=== PATIENT | female | born 1995 | race Caucasian/White ===

== ENCOUNTER 2020-11-20 18:58 | Inpatient (IN) | payer OTHER, SELFPAY ==
[2020-11-20 19:06] VITALS: BMI 25.1
[2020-11-20] MEDS: Lactated Ringers 1,000 ML 50 ML IV (20:00)
[2020-11-20] MEDS: 0.9% Normal Saline Single 100 ML IV.SOLN. INTRA-UTER (20:10)
[2020-11-20 20:15] LABS: Absolute Lymphocyte Count 3.08 X10^3/uL (0.83-4.51); Absolute Neutrophil Count 6.9 X10^3/uL (2.0-7.7); Basophil# 0.03 X10^3/uL; Basophil% 0.3 % (0-1); Eosinophil# 0.14 X10^3/uL; Eosinophils% 1.3 % (0-5); Hematocrit 33.5 % (37-47); Hemoglobin 10.7 g/dL (12.0-15.0); Lymphocyte # 3.08 X10^3/ul (0.83-4.51); Lymphocyte % 27.8 % (19-41); Mean Corp Hgb Conc 31.9 g/dL (32-36); Mean Corpuscular Volume 90.8 fL (81-99); Mean Platelet Vol. 11.4 fl (6.2-12.0); Monocyte# 0.88 X10^3/uL; NRBC Flagged by Analyzer 0 % (0-5); Neutrophil # 6.88 X10^3/uL (2.7-7.7); Neutrophil % 62.1 % (47-70); Platelet Count 215 K/mm3 (150-450); RBC Distribution Width CV 13.1 % (11.6-14.6); RBC Distribution Width SD 42.6 fl (35.1-43.9); Red Blood Count 3.69 M/mm3 (4.2-5.4); White Blood Count 11.1 K/mm3 (4.4-11.0)
[2020-11-20 20:17] VITALS: BP 115/71; PULSE 87; TEMP 36.9
--- NOTE | 2020-11-20 20:23 | HP.PCM.OB_ITS ---
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 for induction of labor due to mild oligohydramnios. PFSH Home Medications Lactobacillus acidophilus [Florajen Acidophilus] 20,000 mmu cells PO DAILY 11/20/20 [History Last Taken 11/19/20] [id number] oil [ Gummy] 1 tab PO DAILY 11/20/20 [History Last Taken 11/19/20] pyridoxine (vitamin B6) [Vitamin B-6] 50 mg PO DAILY 11/20/20 [History Last Taken 11/19/20] Allergy/AdvReac Type Severity Reaction Status Date / Time Penicillins Allergy Mild Hives Verified 11/20/20 20:28 History Addt'l History: Rubella immune HIV negative RPR negative GBS negative HBsAG negative HepC negative A positive GC/CT negative NST FHR Rate Baby A Baseline: 135 Variability:: Moderate Accelerations:: 15 x 15 Decelerations:: None FHR Category:: Category I Uterine Activity:: Irregular ROS Constitutional Constitutional: Reports systems reviewed and no addt'l complaints, except as documented; Denies headache(s) Eyes Eyes: Denies acute decrease in peripheral vision, blurry vision or change in vision ENT HEENT: Reports systems reviewed and no addt'l complaints, except as documented Cardiovascular Cardiovascular: Denies chest pain or dizziness Respiratory/Chest Respiratory/Chest: Denies cough, dyspnea, dyspnea on exertion, shortness of breath at rest or shortness of breath with exertion Gastrointestinal Gastrointestinal: Denies abdominal pain, diarrhea, nausea or vomiting Genitourinary Genitourinary: Denies abdominal discomfort or movement Musculoskeletal Musculoskeletal: Denies limited range of motion Integumentary Integumentary: Reports systems reviewed and no addt'l complaints, except as documented Neurologic Neurologic: Reports systems reviewed and no addt'l complaints, except as documented Psychiatric Psychiatric: Reports systems reviewed and no addt'l complaints, except as documented Endocrine Endocrinology: Reports systems reviewed and no addt'l complaints, except as documented Hematologic/Lymphatic Hematologic/Lymphatic: Reports systems reviewed and no addt'l complaints, except as documented Allergic/Immunologic Allergic/Immunologic: Reports systems reviewed and no addt'l complaints, except as documented Vital Signs Vital Signs Vital Signs: 11/20/20 20:17 Pulse Rate 87 Blood Pressure 115/71 BP Systolic 115 BP Diastolic 71 Physical Exam Const alert, oriented x3 and no apparent distress General Appearance: cooperative and comfortable Orientation / Consciousness: awake, oriented to person, oriented to place and oriented to time Exam Limitations: no limitations HEENT normocephalic Head and Scalp: normocephalic and atraumatic Face and Sinus: normal facial exam Eyes General Eye: normal appearance of both eyes Neck full ROM Chest Chest: symmetrical chest wall rise Resp normal respiratory effort and normal air movement Auscultation: clear to auscultation bilaterally Cardio regular rate, regular rhythm, S1 normal heart sound, S2 normal heart sound, no murmurs, no rub, no gallops and no clicks GI normal to inspection, nondistended, normoactive bowel sounds and non-tender appearance of the vagina normal Bladder / Kidney Exam: no CVA tenderness Manual OB Exam: presentation cephalic, dilated 2, effaced 60 and station - 2 Amniotic Fluid: no amniotic fluid noted Back/Spine normal ROM Extremity normal to inspection and full ROM Skin no rashes or lesions noted Neuro oriented x3, CN's II-XII intact bilaterally and moves all extremities Sensorium / Orientation: awake, alert and oriented to person Motor Exam: clonus absent Deep Tendon Reflexes: Rt Patellar (L4): 2+ and Lt Patellar (L4): 2+ Assessment & Plan Assessment/Plan (1) Polyhydramnios affecting : Status: Acute Code(s): O40.9XX0 - Polyhydramnios, unspecified trimester, not applicable or unspecified (2) History of spontaneous : Status: Acute Code(s): Z87.59 - Personal history of other complications of , childbirth and the puerperium (3) Encounter for induction of labor: Status: Acute Code(s): Z34.90 - Encounter for supervision of normal , unspecified, unspecified trimester Plan: 1) Admit to labor and delivery 2) IV and routine labs 3) Continuous EFM 4) Fraga with PO cytotec for cervical ripening 5) Pitocin per policy once cervical ripened and 4hr after last cytotec dose if needed 6) Planning unmedicated , has suha Sousa present 7) COVID test 8)GBS negative 9) notified and collaborative physician.
[2020-11-20] MEDS: miSOPROStol 25 MCG TABLET PO (21:00)
[2020-11-20 21:11] VITALS: BP 112/64; PULSE 84; TEMP 36.7; O2SAT 100
[2020-11-20 23:45] VITALS: BP 117/67; PULSE 86; TEMP 36.8; O2SAT 99
[2020-11-20 23:51] VITALS: PULSE 81; O2SAT 99
[2020-11-21] VITALS (66 sets, daily range): BP systolic 89–129; BP diastolic 50–73; PULSE 78–153; RESP 16; TEMP 36.2–37.2; O2SAT 82–100
--- NOTE | 2020-11-21 00:38 | NURSING ---
Paternal aunt-missing ears/no tubes. FOB states not a genetic finding.
[2020-11-21] MEDS: Lactated Ringers 500 ML 999 ML IV (04:31)
[2020-11-21] MEDS: 0.9% Saline Lock 10 ML Syringe IV (04:31)
[2020-11-21] MEDS: Oxytocin 30 units/NS 500 ml 30 UNITS/500 ML IV.SOLN IV (06:13)
[2020-11-21] MEDS: fentaNYL-bupivacaine (epidural) 100 ML BAG EPIDURAL (06:14)
[2020-11-21] MEDS: Lactated Ringers 1,000 ML 200 ML IV (07:04)
[2020-11-21] MEDS: Ondansetron 4 MG/2 ML Vial IV (07:32)
[2020-11-21] MEDS: Oxytocin 30 units/NS 500 ml 30 UNITS/500 ML IV.SOLN 334 UNITS IV (10:50)
--- NOTE | 2020-11-21 11:36 | OP.PCM_ITS ---
Problems Associated Problem List Diagnoses (1) Vaginal delivery: (2) Second degree perineal laceration: (3) Laceration of labia minora: Report of Operation (OB) Information Final HA: 11/20/20 Final HA Source: US <20 weeks Gestational age: 40 Weeks and 1 Days Operative Information Date of Procedure: 11/21/20 Pre-Operative Diagnosis: Induction of labor for polyhydramnios Post-Operative Diagnosis: Type of Anesthesia: Epidural Findings Description of Procedure: Progressed to completed with strong urge to push. of viable male over second degree perineal laceration and left labial laceration. APGARS 10,10. head delivered with body forthcoming. Mouth and nares suctioned for secretions. Infant placed on maternal abdomen, strong cry. Pitocin started for active 3rd stage management. Placenta delivered with expr ession, inctact, 3 vessel cord. Perineum inspected and revealed 2nd degree perineal laceration and left labial laceration, repaired under epidural analgesia and 3.0vicryl rapide. Vaginal sweep completed by me. Fundus firm. hemostasis achieved and EBL 250ml. initiated. Mom and baby stable. Family bonding well. notified of delivery. Surgery/ Procedure Performed: Spontaneous Vaginal Delivery Presentation: Positive for Vertex and DAVIDA Amniotic Membrane Rupture Type: Spontaneous Amniotic Fluid Description: Clear and - (terminal meconium) Placental Delivery Description: Spontaneous Placenta Disposition: [facility] Cord Vessel Description: 3 Vessels Cord Entanglement: Around neck x 1, loose Nuchal Cord Compression: Without compression Infant Gender: Male (1 minute): 10 (5 minute): 10 Delayed Cord Clamping: Yes Esitmated Blood Loss (mL): 250 ml Post Vaginal Delivery Episiotomy Description: None Laceration: Perineal Extension/lac and 2nd degree Complications Complications: None Baby B Information Amniotic Membrane Rupture Type: Spontaneous Operative Information Cord Entanglement: Around neck x 1, loose Cord Vessel Description: 3 Vessels (1 minute): 10 (5 minute): 10
[2020-11-21] MEDS: Ibuprofen 600 MG Tablet PO ×2 (12:46→22:03)
[2020-11-22 03:47] VITALS: BP 105/56; PULSE 78; RESP 18; TEMP 36
[2020-11-22] MEDS: Acetaminophen 500 MG Tablet 1000 MG PO (03:56)
[2020-11-22 05:20] LABS: Hematocrit 29.9 % (37-47); Hemoglobin 9.6 g/dL (12.0-15.0); Mean Corp Hgb Conc 32.1 g/dL (32-36); Mean Corpuscular Hgb 29.3 pg (27.0-32.0); Mean Corpuscular Volume 91.2 fL (81-99); Mean Platelet Vol. 11.5 fl (6.2-12.0); Platelet Count 172 K/mm3 (150-450); RBC Distribution Width CV 13.2 % (11.6-14.6); RBC Distribution Width SD 43.3 fl (35.1-43.9); Red Blood Count 3.28 M/mm3 (4.2-5.4); White Blood Count 15.1 K/mm3 (4.4-11.0)
[2020-11-22 08:04] VITALS: BP 110/58; PULSE 77; RESP 16; TEMP 36.1
--- NOTE | 2020-11-22 08:39 | PCM.PN.OB ---
Subjective Subjective: Patient seen at bedside. Up ambulating in room. Voiding without difficulty. Breast feeding going well with minimal support. Taking Motrin PO for soreness. Requesting discharge home later today. Objective Data Objective Data Vital Signs: Vital Signs Temp Pulse Resp BP Pulse Ox 97.0 F L 77 16 110/58 L 100 11/22/20 08:04 11/22/20 08:04 11/22/20 08:04 11/22/20 08:04 11/21/20 07:17 Oxygen Delivery Method Room Air Weight: 169 lb 15.622 oz Body Mass Index (BMI) 25.1 Intake & Output: Intake and Output for Last 24 Hours 11/20/20 11/21/20 11/22/20 23:59 23:59 23:59 Intake Total 2603.20 / 2603.20 Output Total 1500 / 1500 Balance 1103.20 / 1103.20 Lab / Micro Data Result Diagrams: 11/22/20 05:15 Labs: Laboratory Results - last 24 hr 11/22/20 05:15 WBC 15.1 H RBC 3.28 L Hgb 9.6 L Hct 29.9 L MCV 91.2 MCH 29.3 MCHC 32.1 RDW Std Deviation 43.3 RDW Coeff of Lior 13.2 Plt Count 172 MPV 11.5 Micro: Microbiology 11/20/20 19:40 Mucosa - Nose SARS-CoV-2 Antigen (Rapid) - Final Physical Exam Const alert and oriented x3 General Appearance: cooperative and comfortable Orientation / Consciousness: awake Exam Limitations: no limitations HEENT normocephalic Face and Sinus: normal facial exam Eyes General Eye: normal appearance of both eyes Neck full ROM General: normal visual inspection Lymph Lymphatic: no lymphadenopathy noted Chest Chest: symmetrical chest wall rise Resp normal respiratory effort and normal air movement Effort and Inspection: able to speak in complete sentences Cardio regular rate external exam normal OB / External & Speculum: vulvular erythema Manual OB Exam: deferred Extremity normal to inspection Skin no rashes or lesions noted Neuro oriented x3 and CN's II-XII intact bilaterally Psych Appearance: appropriate Attitude: calm Assessment & Plan Assessment/Plan (1) Second degree perineal laceration: Status: Acute Code(s): O70.1 - Second degree perineal laceration during delivery (2) Laceration of labia minora: Status: Acute Code(s): S31.41XA - Laceration without foreign body of vagina and vulva, initial encounter (3) Vaginal delivery: Status: Acute Code(s): O80 - Encounter for full-term uncomplicated delivery Plan: Routine care Pain control support Discharge home today
--- NOTE | 2020-11-22 08:48 | PCM.DC.SUM ---
Providers Date of Admission: 11/20/20 Primary Care Physician: Analisa Primary Care Phys Reason For Visit: VAGINAL DELIVERY Diagnosis Discharge Diagnosis (1) Second degree perineal laceration: Status: Acute Code(s): O70.1 - Second degree perineal laceration during delivery (2) Laceration of labia minora: Status: Acute Code(s): S31.41XA - Laceration without foreign body of vagina and vulva, initial encounter (3) Vaginal delivery: Status: Acute Code(s): O80 - Encounter for full-term uncomplicated delivery Medications at Discharge Home Medications Florajen Acidophilus 20,000 mmu cells PO DAILY 11/20/20 Gummy 1 tab PO DAILY 11/20/20 ABG / Lab / Microbiology Data Result Diagrams: 11/22/20 05:15 Laboratory: Laboratory Results - last 24 hr 11/22/20 05:15 WBC 15.1 H RBC 3.28 L Hgb 9.6 L Hct 29.9 L MCV 91.2 MCH 29.3 MCHC 32.1 RDW Std Deviation 43.3 RDW Coeff of Lior 13.2 Plt Count 172 MPV 11.5 Microbiology: Microbiology 11/20/20 19:40 Mucosa - Nose SARS-CoV-2 Antigen (Rapid) - Final D/C Instructions Discharge Diet: No restrictions Weight Bearing Status: Weight bearing as tolerated Please follow up with your Primary Care Physician in: 2 weeks virtual/6 weeks in office Meaningful Use Info Meaningful Use Diagnoses (Choose all that apply): None applicable Discharge Plan Admission Admit Date/Time: 11/20/20 18:58 Primary Reason for Your Visit: Induction of labor Attending Provider: Gabbi Agustin Primary Care Provider: Care Physician,No Primary Discharge Orders/Prescriptions Prescriptions: Continued Florajen Acidophilus 20 billion cell Capsule 20,000 mmu cells PO DAILY RF: 0 Gummy 400 mcg-35 mg -25 mg-5 mg Tablet,Chewable 1 tab PO DAILY RF: 0 Discontinued Vitamin B-6 50 mg Capsule 50 mg PO DAILY RF: 0 Referrals: Care Physician,No Primary [Primary Care Provider] - Disposition Patient Disposition: Home, self care
[2020-11-22] MEDS: Ibuprofen 600 MG Tablet PO ×2 (08:53→16:44)
[2020-11-22 12:56] VITALS: BP 104/58; PULSE 101; RESP 18; TEMP 36.3
--- NOTE | 2020-11-23 15:24 | PCM.DC ---
Discharge Instructions Outpatient Procedure Reason For Visit: VAGINAL DELIVERY Diet Discharge Diet: No restrictions Activity Discharge Activity: No Restrictions May resume sexual activity in: 6-8 weeks Weight Bearing Status: Weight bearing as tolerated Dressing / Incision Call your doctor if you observe: Fever of 101 or Higher, Inability to urinate, Using more than one pad per hour, Shortness of breath, Chest pain, Calf discomfort and Uncontrolled pain Follow Up Care Please Follow Up With: Maryam Junior CNM When: 2 weeks virtual visit/ 6 weeks in office Test Results: Test results from this visit will be discussed in further detail at your follow-up appointment, if applicable. Discharge Plan Admission Admit Date/Time: 11/20/20 18:58 Primary Reason for Your Visit: vaginal delivery Attending Provider: Gabbi Agustin Primary Care Provider: Care Physician,No Primary Instructions Forms: Information Discharge Orders/Prescriptions Prescriptions: Continued Florajen Acidophilus 20 billion cell Capsule 20,000 mmu cells PO DAILY RF: 0 Gummy 400 mcg-35 mg -25 mg-5 mg Tablet,Chewable 1 tab PO DAILY RF: 0 Discontinued Vitamin B-6 50 mg Capsule 50 mg PO DAILY RF: 0 Referrals: Care Physician,No Primary [Primary Care Provider] - Disposition Patient Disposition: Home, self care
--- NOTE | 2020-11-23 15:28 | PCM.DC ---
Discharge Instructions Outpatient Procedure Reason For Visit: VAGINAL DELIVERY Diet Discharge Diet: No restrictions Activity Discharge Activity: No Restrictions, May Not Drive (2 weeks), May Shower and May Take a Tub Bath (Do not use soaps, salts or bubble bath) May resume sexual activity in: 6-8 weeks Weight Bearing Status: Weight bearing as tolerated Lifting Restrictions: 20 lbs Dressing / Incision Call your doctor if your incision/area has: Continuous Slow Oozing, Increased Pain/ Swelling, Increased Redness, Foul Smelling Discharge and Swelling at the incision site Call your doctor if you observe: Fever of 101 or Higher, Inability to urinate, Using more than one pad per hour, Shortness of breath, Chest pain, Calf discomfort and Uncontrolled pain Remove Dressing in: 5 days Cleanse incision/area with: Soap & Water and Keep Dressing Clean & Dry Follow Up Care Please Follow Up With: Maryam Junior CNM Test Results: Test results from this visit will be discussed in further detail at your follow-up appointment, if applicable. Discharge Plan Admission Admit Date/Time: 11/20/20 18:58 Primary Reason for Your Visit: vaginal delivery Attending Provider: Gabbi Agustin Primary Care Provider: Care Physician,No Primary Instructions Forms: Information Discharge Orders/Prescriptions Prescriptions: Continued Florajen Acidophilus 20 billion cell Capsule 20,000 mmu cells PO DAILY RF: 0 Gummy 400 mcg-35 mg -25 mg-5 mg Tablet,Chewable 1 tab PO DAILY RF: 0 Discontinued Vitamin B-6 50 mg Capsule 50 mg PO DAILY RF: 0 Referrals: Care Physician,No Primary [Primary Care Provider] - Disposition Patient Disposition: Home, self care
== END 2020-11-22 17:05 | disposition home or self-care (01) | DRG 807 ==
PROVIDERS: Admitting Provider Advanced Practice Midwife; Visit Provider Advanced Practice Midwife
DX: O40.3XX0 Polyhydramnios, third trimester, not applicable or unspecified (principal); Z37.0 Single live birth; O70.1 Second degree perineal laceration during delivery; O69.81X0 Labor and delivery complicated by cord around neck, without compression, not applicable or unspecified; Z87.59 Personal history of other complications of pregnancy, childbirth and the puerperium; Z3A.40 40 weeks gestation of pregnancy; Z88.0 Allergy status to penicillin
CPT/HCPCS: 59025; 59050; 85025; 85027; 86850; 86900; 86901; 87426; 99218; J7120; A4216; G0378; J2405

== ENCOUNTER → 2021-01-07 12:55 | Outpatient (CLI) | payer OTHER, SELFPAY | PROVIDERS: Referring Provider Advanced Practice Midwife; Visit Provider Advanced Practice Midwife | DX: O92.79 Other disorders of lactation (principal) | CPT/HCPCS: 96158; 96159 ==

== ENCOUNTER → 2021-05-26 16:21 | Outpatient (CLI) | payer OTHER, SELFPAY ==
[2021-05-27 08:35] LABS: Hepatitis B Surface Antibody Non-Reactive
[2021-05-31 06:08] LABS: HEPATITIS B SURFACE AG Negative (Negative); Hepatitis A IgM Antibody Negative (Negative); Hepatitis B Core AB IgM Negative (Negative); QNTFERON TB Mitogen Value > 10.00 IU/mL (.); QNTFERON TB Nil Value 0.05 IU/mL (.); QNTFERON TB1+ Ag Value 0.07 IU/mL (.); QNTFERON TB2+ Ag Value 0.06 IU/mL (.)
[2021-05-31 08:37] LABS: Hep C Antibodies <0.1 s/co ratio (0.0-0.9); Hepatitis A AB, Total Positive (Negative); QNTIFERON TB Positive Criteria Negative (Negative)
== END ==
PROVIDERS: Referring Provider Dermatology Pediatric Dermatology; Visit Provider Dermatology Pediatric Dermatology
DX: L40.0 Psoriasis vulgaris (principal); Z79.899 Other long term (current) drug therapy
CPT/HCPCS: 36415; 80074; 86480; 86706; 86708

== ENCOUNTER 2023-02-01 06:30 | Inpatient (IN) | payer SELFPAY ==
[2023-02-01] VITALS (17 sets, daily range): BP systolic 114–134; BP diastolic 57–73; PULSE 86–123; RESP 16; TEMP 36.4–36.6; O2SAT 98–100; BMI 23.6
[2023-02-01 07:35] LABS: Absolute Lymphocyte Count 2.29 X10^3/uL (0.83-4.51); Absolute Neutrophil Count 6.5 X10^3/uL (2.0-7.7); Basophil# 0.03 X10^3/uL; Basophil% 0.3 % (0-1); Eosinophil# 0.31 X10^3/uL; Eosinophils% 3.1 % (0-5); Hemoglobin 12.6 g/dL (12.0-15.0); Lymphocyte # 2.29 X10^3/ul (0.83-4.51); Lymphocyte % 23.1 % (19-41); Mean Corp Hgb Conc 32.3 g/dL (32-36); Mean Corpuscular Hgb 30.7 pg (27.0-32.0); Mean Corpuscular Volume 94.9 fL (81-99); Mean Platelet Vol. 11.1 fl (6.2-12.0); Monocyte# 0.68 X10^3/uL; Monocyte% 6.8 % (0-10); NRBC Flagged by Analyzer 0 % (0-5); Neutrophil # 6.54 X10^3/uL (2.7-7.7); Neutrophil % 65.9 % (47-70); Platelet Count 145 K/mm3 (150-450); RBC Distribution Width CV 13.2 % (11.6-14.6); Red Blood Count 4.11 M/mm3 (4.2-5.4); White Blood Count 9.9 K/mm3 (4.4-11.0)
[2023-02-01] MEDS: Lactated Ringers 1,000 ML 50 ML IV (07:35)
[2023-02-01] MEDS: Oxytocin 15 Units/NS 250ml 15 UNITS/250 ML IV.SOLN 2 UNITS IV (08:49)
[2023-02-01 08:59] LABS: Syphilis Antibodies Non-reactive
--- NOTE | 2023-02-01 11:36 | PN.OBGYN_ITS ---
Subjective Subjective Coping well in labor, unmedicated. Positional changes and breathing through contractions. providing labor support at bedside. Objective Data Objective Data Vital Signs: Vital Signs Temp Pulse BP Pulse Ox 97.8 F 99 133/71 H 98 02/01/23 11:21 02/01/23 11:21 02/01/23 11:21 02/01/23 10:32 Weight: 160 lb 0.889 oz Body Mass Index (BMI) 23.6 Intake & Output: Intake and Output for Last 24 Hours 01/30/23 01/31/23 02/01/23 23:59 23:59 23:59 Intake Total 1.3 / 1.3 Balance 1.3 / 1.3 Lab / Micro Data 02/01/23 07:15 Labs: Laboratory Results - last 24 hr 02/01/23 07:15: WBC 9.9, RBC 4.11 L, Hgb 12.6, Hct 39.0, MCV 94.9, MCH 30.7, MCHC 32.3, RDW Std Deviation 46.0 H, RDW Coeff of Lior 13.2, Plt Count 145 L, MPV 11.1, Immature Gran % (Auto) 0.800, Neut % (Auto) 65.9, Lymph % (Auto) 23.1, [place] % (Auto) 6.8, Eos % (Auto) 3.1, Baso % (Auto) 0.3, Absolute Neuts (auto) 6.5, Absolute Lymphs (auto) 2.29, Nucleated RBC % 0, Syphilis Total Ab Non- reactive, Blood Type A POSITIVE, Antibody Screen NEGATIVE Physical Exam Manual OB Exam: estimated gestational size appropriate, presentation cephalic, dilated 80, effaced 80, station -1 and other AROM meconium stained fluid NST FHR Rate Baby A Baseline: 125 Variability:: Moderate Accelerations:: 15 x 15 Decelerations:: Variable FHR Category:: Category II Uterine Activity:: Contractions every 2-3 minutes Assessment & Plan (1) Thick meconium stained amniotic fluid: (2) Active labor at term: (3) Post-dates : PLAN: Plan 1) Active labor progressing, continue with active management. 2) Continue with active management, Pitocin at 4 mu's 3) Planning unmedicated 4) collaborative physician and notified of patient status
--- NOTE | 2023-02-01 11:50 | PCM.HP.OB ---
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 Upon arrival, having irregular contractions. No leakage of fluid or vaginal bleeding. course uncomplicated. Maternal Data Information HA Calculator Estimated Delivery Date Method Current WG Current Estimate 01/20/23 Manual 41w 5d Final HA: 01/20/23 PFS PFS Medical History (Updated 02/01/23 @ 12:05 by Gabbi Agustin CNM) Encounter for induction of labor Family history of hearing loss at age younger than 7 years Medical History no medical history Home Medications Lactobacillus acidophilus 20 billion cell capsule (Florajen Acidophilus) 20,000 mmu cells PO DAILY supplement 11/20/20 [History Last Taken 01/31/23] [id number] 400 mcg-om3 35 mg-dha 25 mg-epa 5 mg-fish oil chewable tablet ( Gummy) 1 tab PO DAILY supplement 11/20/20 [History Last Taken 01/31/23] aspirin 81 mg tablet,delayed release 81 mg PO DAILY 02/01/23 [History Last Taken 01/31/23] Allergy/AdvReac Type Severity Reaction Status Date / Time Penicillins Allergy Mild Hives Verified 02/01/23 08:36 Family History Brother Myasthenia gravis Surgical History (Updated 11/20/20 @ 20:43 by Lucina Ruiz) [place] teeth extracted Social History Smoking Status: Never smoker History Elective abortions Hx Para 1 Spontaneous abortions Hx # Term Pregnancies Ectopic pregnancies Hx # Pregnancies Multiple births # of living children NST FHR Rate Baby A Baseline: 125 Variability:: Moderate Accelerations:: 15 x 15 Decelerations:: Variable NST Reactive:: Yes FHR Category:: Category II Uterine Activity:: every 2-4 minutes ROS Constitutional Constitutional: Reports systems reviewed and no addt'l complaints, except as documented; Denies headache(s) Eyes Eyes: Denies acute decrease in peripheral vision, blurry vision or change in vision ENT HEENT: Reports systems reviewed and no addt'l complaints, except as documented Cardiovascular Cardiovascular: Denies chest pain or dizziness Respiratory/Chest Respiratory/Chest: Denies cough, dyspnea, dyspnea on exertion, shortness of breath at rest or shortness of breath with exertion Gastrointestinal Gastrointestinal: Denies abdominal pain, diarrhea, nausea or vomiting Genitourinary Genitourinary: Denies abdominal discomfort Musculoskeletal Musculoskeletal: Denies limited range of motion Integumentary Integumentary: Reports systems reviewed and no addt'l complaints, except as documented Neurologic Neurologic: Reports systems reviewed and no addt'l complaints, except as documented Psychiatric Psychiatric: Reports systems reviewed and no addt'l complaints, except as documented Endocrine Endocrinology: Reports systems reviewed and no addt'l complaints, except as documented Hematologic/Lymphatic Hematologic/Lymphatic: Reports systems reviewed and no addt'l complaints, except as documented Allergic/Immunologic Allergic/Immunologic: Reports systems reviewed and no addt'l complaints, except as documented Vital Signs Vital Signs Vital Signs: 02/01/23 07:24 02/01/23 07:24 02/01/23 07:25 Temperature Temperature Source Pulse Rate 86 99 Blood Pressure 114/61 BP Systolic 114 BP Diastolic 61 Pulse Ox 02/01/23 07:25 02/01/23 07:24 02/01/23 07:24 Temperature 97.7 F L Temperature Source Temporal Pulse Rate Blood Pressure BP Systolic BP Diastolic Pulse Ox 99 02/01/23 07:24 02/01/23 08:44 02/01/23 08:44 Temperature Temperature Source Pulse Rate 89 Blood Pressure 134/73 H BP Systolic 134 BP Diastolic 73 Pulse Ox 99 02/01/23 08:43 02/01/23 10:32 02/01/23 10:32 Temperature Temperature Source Pulse Rate 123 H Blood Pressure 129/60 H BP Systolic 129 BP Diastolic 60 Pulse Ox 100 02/01/23 10:31 02/01/23 10:32 02/01/23 11:21 Temperature Temperature Source Temporal Pulse Rate Blood Pressure BP Systolic BP Diastolic Pulse Ox 98 98 02/01/23 11:21 02/01/23 11:21 02/01/23 11:21 Temperature 97.8 F Temperature Source Pulse Rate 99 Blood Pressure 133/71 H BP Systolic 133 BP Diastolic 71 Pulse Ox Weight Weight: 160 lb 0.889 oz Body Mass Index (BMI) 23.6 Physical Exam Const alert and oriented x3 General Appearance: cooperative Orientation / Consciousness: awake, oriented to person, oriented to place and oriented to time Exam Limitations: no limitations HEENT normocephalic Head and Scalp: normal to inspection, normocephalic and atraumatic Face and Sinus: normal facial exam Eyes General Eye: normal appearance of both eyes Neck full ROM Chest Chest: symmetrical chest wall rise Resp normal respiratory effort and normal air movement Auscultation: clear to auscultation bilaterally Cardio regular rate, regular rhythm, S1 normal heart sound, S2 normal heart sound, no murmurs, no rub, no gallops and no clicks GI normal to inspection, nondistended, normoactive bowel sounds and non-tender appearance of the vagina normal Bladder / Kidney Exam: no CVA tenderness Manual OB Exam: estimated gestational size appropriate, presentation cephalic and dilated 5cm upon arrival Back/Spine normal ROM Extremity normal to inspection and full ROM Skin no rashes or lesions noted Neuro oriented x3, CN's II-XII intact bilaterally and moves all extremities Sensorium / Orientation: awake, alert and oriented to person Motor Exam: clonus absent Deep Tendon Reflexes: Rt Patellar (L4): 2+ and Lt Patellar (L4): 2+ Labs Labs Labs: Blood Type A POSITIVE Antibody Screen NEGATIVE Hct 39.0 % (37-47) Hgb 12.6 g/dL (12.0-15.0) Syphilis Total Ab Non-reactive Hep Bs Antigen Negative (Negative) GBS negative HIV negative RPR negative Hep C negative HBsAG negative Rubella immune A positive GC/CT negative Assessment & Plan (1) Encounter for induction of labor: (2) 41 weeks gestation of : (3) Post-dates : (4) Active labor at term: PLAN: Plan 1) Admit to labor and delivery 2) GBS negative 3) Pitocin per policy 4) Pain management upon request 5) Continous EFM 6) collaborative physician and notified of patient status.
[2023-02-01] MEDS: Lidocaine 1% (20 ml mdv) 20 ML Vial INFILT (13:32)
--- NOTE | 2023-02-01 13:46 | EX.PCM.OBRPT ---
Assessment & Plan (1) Second degree perineal laceration: (2) Thick meconium stained amniotic fluid: (3) Vaginal delivery: Maternal Data Information HA Calculator Estimated Delivery Date Method Current WG Current Estimate 01/20/23 Manual 41w 5d Vaginal Delivery Maternal Presentation Maternal Presentation: Active Labor and Medically Indicated Induction Type of Induction: Pitocin Medical Reason for Induction: Post term Operative Information Date of Procedure: 02/01/23 Pre-Operative Diagnosis: Presented in active labor/labor augmentation Post-Operative Diagnosis: , second degree perineal laceration Surgery / Procedure Performed: Spontaneous Vaginal Delivery Type of Anesthesia: Local with 2% Lidocaine Estimated Blood Loss: 450 ml Time of Delivery: 13:22 Findings Description of Procedure: Progressed to complete with urge to push. Unmedicated. Pediatirician and respiratory called for delivery due to meconium stained fluid. of viable female over second degree perineal laceration. APGARS 8,9 respectively. head delivered with body immediately forthcoming. Placed on maternal abdomen, strong cry. Mouth and nares suctioned for secretions. Pitocin started for active 3rd stage management. Cord doubly clamped and cut by FOB after pulsations ceased, delayed cord clamping. Placenta delivered intact via tierra, 3 vessel cord intact. Perineum inspected and revealed 2nd degree perineal laceration. Repaired with 3.0 Vicryl Rapide and lidocaine. Fundus firm and hemostasis achieved. EBL 450. Sponge and instrument count correct. Vaginal sweep completed by me. Mom and baby stable, planning to breastfeed. Family bonding well. notified of delivery. Presentation: Vertex and ROP Amniotic Membrane Rupture Type: Spontaneous Amniotic Fluid Description: Thick meconium Placental Delivery Description: Spontaneous Placenta Disposition: [facility] Cord Vessel Description: 3 Vessels Cord Entanglement: None Infant A Gender: Female (1 minute): 8 (5 minute): 9 Delayed Cord Clamping: Yes Post Vaginal Delivery Medications Given After Delivery: IV Pitocin Episiotomy Description: None Laceration: Perineal Extension/lac and 2nd degree Complication Complications: None
[2023-02-01] MEDS: Oxytocin 15 Units/NS 250ml 15 UNITS/250 ML IV.SOLN 83 UNITS IV (13:59)
[2023-02-01] MEDS: Ibuprofen 600 MG Tablet PO (15:11)
[2023-02-01] MEDS: 0.9% Saline Lock 10 ML Syringe IV (17:04)
[2023-02-02 00:20] VITALS: BP 106/58; PULSE 78; RESP 16; TEMP 36.4
[2023-02-02 04:19] VITALS: BP 126/58; PULSE 77; RESP 16; TEMP 36.6
[2023-02-02] MEDS: Acetaminophen 500 MG Tablet 1000 MG PO (06:00)
[2023-02-02 07:04] LABS: Hematocrit 32.9 % (37-47); Hemoglobin 10.8 g/dL (12.0-15.0); Mean Corp Hgb Conc 32.8 g/dL (32-36); Mean Corpuscular Volume 94.5 fL (81-99); Platelet Count 146 K/mm3 (150-450); RBC Distribution Width CV 13.3 % (11.6-14.6); RBC Distribution Width SD 46.2 fl (35.1-43.9); Red Blood Count 3.48 M/mm3 (4.2-5.4); White Blood Count 10.3 K/mm3 (4.4-11.0)
[2023-02-02 07:48] VITALS: BP 125/60; PULSE 78; PULSE 83; PULSE 91; RESP 16; TEMP 36.3; O2SAT 100
[2023-02-02] MEDS: Ibuprofen 600 MG Tablet PO (07:52)
--- NOTE | 2023-02-02 08:28 | PCM.PN.OB ---
Subjective Subjective Denies complaints Objective Data Objective Data Vital Signs: Vital Signs Temp Pulse Resp BP Pulse Ox O2 Del Method 97.4 F L 91 16 125/60 H 100 Room Air 02/02/23 07:48 02/02/23 07:48 02/02/23 07:48 02/02/23 07:48 02/02/23 07:48 02/02/23 07:48 Oxygen Delivery Method Room Air Weight: 160 lb 0.889 oz Body Mass Index (BMI) 23.6 Intake & Output: Intake and Output for Last 24 Hours 01/31/23 02/01/23 02/02/23 23:59 23:59 23:59 Intake Total 736.37 / 736.37 Output Total 1000 / 1000 Balance -263.63 / -263.63 Lab / Micro Data 02/02/23 06:50 Labs: Laboratory Results - last 24 hr 02/01/23 07:15: Syphilis Total Ab Non-reactive, Blood Type A POSITIVE, Antibody Screen NEGATIVE 02/02/23 06:50: WBC 10.3, RBC 3.48 L, Hgb 10.8 L, Hct 32.9 L, MCV 94.5, MCH 31.0, MCHC 32.8, RDW Std Deviation 46.2 H, RDW Coeff of Lior 13.3, Plt Count 146 L, MPV 11.0 Physical Exam Const alert, oriented x3 and no apparent distress HEENT normocephalic GI soft to palpation, non-tender and non-distended GI Narrative: fundus firm, mid & below umbilicus Extremity normal to inspection and no calf tenderness Assessment & Plan (1) Vaginal delivery: COMMENT: PPD#1 PLAN: Plan D/c home at this time as baby being transferred for [facility]
--- NOTE | 2023-02-02 08:33 | DCINST_ITS ---
Discharge Instructions Diet Discharge Diet: No restrictions Activity Discharge Activity: May Shower May resume sexual activity in: 6 weeks Weight Bearing Status: Weight bearing as tolerated Dressing / Incision Call your doctor if you observe: Fever of 101 or Higher, Coldness, Increased Pain, Change in Color, Inability to urinate, Inability to have a bowel movement, Using more than 1 pad per hour, Shortness of breath, Dizziness, Fainting spells, Chest pain, Increased palpitations (irregular heartbeat), Calf discomfort and Uncontrolled pain Follow Up Care Please Follow Up With: Gabbi Agustin CNM When: Follow up in 2 and 6 weeks for visits. Test Results: Test results from this visit will be discussed in further detail at your follow- up appointment, if applicable. Discharge Plan Admission Admit Date/Time: 02/01/23 06:30 Primary Reason for Your Visit: Vaginal delivery Attending Provider: Gabbi Agustin Primary Care Provider: Marcell Physician,No Primary Discharge Orders/Prescriptions Prescriptions: New acetaminophen 500 mg Tablet 1,000 mg PO Q6H PRN PRN (Reason: Pain 1-10 Or Fever) Qty: 0 0RF ibuprofen 600 mg Tablet 600 mg PO Q6H PRN PRN (Reason: Pain Score 1-3) Qty: 0 0RF Continued Florajen Acidophilus 20 billion cell Capsule 20,000 mmu cells PO DAILY Gummy 400 mcg-35 mg -25 mg-5 mg Tablet,Chewable 1 tab PO DAILY Discontinued aspirin 81 mg tablet,delayed release (DR/EC) 81 mg PO DAILY Referrals / Follow Up: Care Physician,No Primary [Primary Care Provider] - Disposition Disposition (needs filled in before D/C Order can be placed): Home, Self Care
--- NOTE | 2023-02-02 09:15 | CASEMGMT ---
Social Work Labor and Delivery Unit ? Summary:?Sw informed by Tail Dogger that baby was born with some abnormalities and family would benefit from meeting with social work. -Sw completed chart review and presented to bedside. Sw introduced self and explained sw role during mother of baby (MOB- Debi) and father of baby (FOB- Robson). Baby girl, Rosmery, is second baby to parents. They have a 2 year old son, Doug. FOB is self employed, MOB is a stay at home mom. Parents report they have a lot of family and friends who are supportive. Family are helping to care for Doug while parents are at the hospital with Rosmery. -MOB delivered Rosmery via vaginal delivery without medications. Baby was born weighing 3280 grams and her apgars were 9 and 9. and labor were uncomplicated. 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 The second one being the inability to open her mouth while crying. Baby will be transferred to [facility]. - Upon entering room MOB was in bed feeding baby, FOB on couch preparing to pack belongings in preparation for discharge and transfer to [facility]. -Parents report they are coping the best they can at this time. MOB states that they are hoping for the best outcome, but also preparing themselves for bad news at the same time. - Parents state they have obtained everything they need for baby including safe sleep space, car seat, clothes, diapers, and wipes. - Sw educated parents on signs and symptoms of baby blues and post depression. Both parents deny mental health history. - Sw educated parents on what to expect when they get to NICU regarding their admission and resources that will be available to them during that time. Parents expressed understanding. ? Assessment:??Baby being transferred to [facility] due to several abnormalities. Need to rule out VACTERL. Parents at bedside and active in hands on care. FOB observed to be very supportive of MOB and attentive to her and baby. Parents open and receptive to sw involvement and support. Parents would benefit from ongoing support and linkage to beneficial resources once admitted at [facility]. ? Intervention:?For continuity of care sw informed NICU family welfare social work professor of information provided to parents. ? Plan:??Baby transferred to NICU, MOB also discharged from [facility]. ? No other services requested or indicated. Guy Morrissey, [employer], SCIENCE INTERPRETER
== END 2023-02-02 10:21 | disposition home or self-care (01) | DRG 807 ==
PROVIDERS: Admitting Provider Advanced Practice Midwife; Referring Provider Advanced Practice Midwife; Visit Provider Advanced Practice Midwife
DX: O48.0 Post-term pregnancy (principal); Z37.0 Single live birth; O70.1 Second degree perineal laceration during delivery; O77.0 Labor and delivery complicated by meconium in amniotic fluid; Z3A.41 41 weeks gestation of pregnancy
CPT/HCPCS: 59025; 59050; 85025; 85027; 86780; 86850; 86900; 86901; 99221; J7120; A4216; G0378

== ENCOUNTER → 2025-04-12 | Outpatient (CLI) | payer SELFPAY | END | disposition home or self-care (01) | LOC: LABSPEC 09:14 | PROVIDERS: Referring Provider Advanced Practice Midwife; Visit Provider Advanced Practice Midwife | DX: Z32.01 Encounter for pregnancy test, result positive (principal) | CPT/HCPCS: 87086 ==

== ENCOUNTER → 2025-05-03 | Outpatient (CLI) | payer SELFPAY ==
[2025-05-07 17:08] LABS: Chlamydia By Nucleic Acid AMP Negative (Negative); Gonococcus By Nucleic Acid AMP Negative (Negative)
== END | disposition home or self-care (01) ==
LOC: LABSPEC 14:09
PROVIDERS: Visit Provider Advanced Practice Midwife
DX: Z12.4 Encounter for screening for malignant neoplasm of cervix (principal); O09.90 Supervision of high risk pregnancy, unspecified, unspecified trimester; Z3A.00 Weeks of gestation of pregnancy not specified
CPT/HCPCS: 87086; 87491; 87591; 88175; G0145

== ENCOUNTER → 2025-05-31 | Outpatient (CLI) | payer SELFPAY ==
[2025-05-31 12:19] LABS: Hematocrit 36.7 % (37-47); Hemoglobin 12.1 g/dL (12.0-15.0); Immature Granulocytes Count 0.030 X10^3/uL (0.0-0.0); Mean Corp Hgb Conc 33.0 g/dL (32-36); Mean Corpuscular Volume 88.2 fL (81-99); Mean Platelet Vol. 10.9 fl (6.2-12.0); NRBC Flagged by Analyzer 0 % (0-5); Platelet Count 254 K/mm3 (150-450); RBC Distribution Width CV 12.9 % (11.6-14.6); RBC Distribution Width SD 41.6 fl (35.1-43.9); Red Blood Count 4.16 M/mm3 (4.2-5.4); White Blood Count 6.5 K/mm3 (4.4-11.0)
[2025-05-31 13:32] LABS: HIV Nonreactive (Nonreactive); Hepatitis B Surface Antigen Nonreactive (Nonreactive); Hepatitis C Antibody Nonreactive (Nonreactive); Syphilis Antibodies Nonreactive (Nonreactive)
== END | disposition home or self-care (01) ==
PROVIDERS: Advanced Practice Midwife; Visit Provider Obstetrics & Gynecology
DX: O09.90 Supervision of high risk pregnancy, unspecified, unspecified trimester (principal); Z3A.00 Weeks of gestation of pregnancy not specified
CPT/HCPCS: 36415; 85025; 86703; 86762; 86780; 86803; 86850; 86900; 86901; 87340